=== PATIENT | female | born 1940 | race Caucasian/White ===

== ENCOUNTER 2018-05-10 15:57 | Emergency (ER) | payer OTHER ==
[2018-05-10 16:29] VITALS: BP 119/79; PULSE 71; TEMP 98.6; BMI 34.1
--- NOTE | 2018-05-10 16:41 | PDOC ---
Attending Attestation - Resident Resident Name: Prateek Sheldon - ED Attending Attestation I have performed the following: I have examined & evaluated the patient, The case was reviewed & discussed with the resident, I agree w/resident's findings & plan - HPI HPI: 05/10/18 18:24 The patient is a 77 year old female, with a significant past medical history of Parkinson's, COPD, Depression, HTN, Hypothyroidism, Bipolar disorder, Gait instability, DM, who presents to the emergency department from [facility] via EMS s/p mechanical fall with, a laceration to the head. As per patient , she was using her walker when she went to turn, and subsequently falling and hitting her head. She also endorses pain to the affected site. The patient is a poor historian. She denies any loss of consciousness or injury to the neck and extremities. She denies recent fevers, chills, headache or dizziness. She denies recent nausea, vomit, diarrhea or constipation. She denies recent dysuria or hematuria. She denies recent chest pain or shortness of breath. Allergies: Bactrim Past surgical history: None reported. Social history: Nonsmoker. Denies EtOH use and recreational drug use. <Santi Love - Last Filed: 05/10/18 18:24> - Physicial Exam PE: 05/10/18 19:07 Agree with resident exam. PAtient is alert and in NAD. + 4 cm laceration to scalp. No cervical spine tenderness. No chest or abdominal tenderness. - Medical Decision Making 05/10/18 19:10 Patient presents to the ED complaining of laceration to the scalp after mechanical trip and fall. Given age, will check Ct head and C spine to rule out intracranial or cervical spinal injury. Will likely discharge home if negative. <Cristal Hernández - Last Filed: 05/10/18 19:11> Attestations - Attestations 05/10/18 18:25 Documentation prepared by Santi Love, acting as territory sales manager medical for Cristal Hernández MD. <Santi Love - Last Filed: 05/10/18 18:24>
--- NOTE | 2018-05-10 17:05 | PDOC ---
History of Present Illness - General Chief Complaint: Injury Stated Complaint: FALL Time Seen by Provider: 05/10/18 16:40 History Source: Patient, Family Exam Limitations: No Limitations - History of Present Illness Initial Comments: 77 y/o F w/PMH of Parkinson's, COPD, Depression, HTN, Hypothyroidism, Bipolar d/ o, Gait instability, DM presents to the ER from [facility]. She states she was walking with her walker and tried turning and fell and hit her head. She doesn' t remember exactly how she fell or landed otherwise. She denies LOC, light- headedness, dizziness, nausea, vomiting, CP, palpitations. She reports falling 1 -2 days ago for a mechanical fall but was monitored at the [facility] at that time. She reports increased frequency at night but otherwise denies change in vision, fevers, chills, abd pain, dysuria, change in bowel movements, blood in stool, blood in urine, increase LE edema. Says there was a change in her anti- psychotics 2 weeks ago but does not know which ones exactly. Has a laceration at the top of her head and was sent in from [facility] for further evaluation of the laceration and fall. PMH:Parkinson's, COPD, Depression, HTN, Hypothyroidism, Bipolar d/o, Gait instability, DM PSHx: Denies Allergies: Bactrim 05/10/18 18:27 Past History - Past Medical History Allergies/Adverse Reactions: Allergies Allergy/AdvReac Type Severity Reaction Status Date / Time sulfamethoxazole Allergy Verified 05/10/18 16:14 [From Bactrim] trimethoprim [From Bactrim] Allergy Verified 05/10/18 16:14 Home Medications: Ambulatory Orders Albuterol 2.5/Ipratropium 0.5 [Duoneb -] 1 amp NEB Q6H 05/10/18 Aspirin 81 mg PO DAILY 05/10/18 Atorvastatin Ca [Lipitor] 10 mg PO HS 05/10/18 Bismuth Subsalicylate [Nikia-Pectate] 262 mg PO DAILY PRN 05/10/18 Budesonide/Formeterol Fumarate [SYMBICORT 160/4.5mcg -] 2 inh PO DAILY 05/10/18 Calcium Carbonate/Vitamin D3 [Calcium 500 + Vit D Caplet] 1 each PO DAILY Carbidopa/Levodopa *Cr* 50/200 [Sinemet *Cr* 50/200 -] 1 combo PO TID 05/10/18 Citalopram Hydrobromide [Citalopram HBr] 30 mg PO DAILY 05/10/18 Clonazepam 0.5 mg PO BID 05/10/18 Divalproex Sodium [Depakote] 250 mg PO HS 05/10/18 Divalproex [Depakote -] 500 mg PO DAILY 05/10/18 Divalproex [Depakote -] 500 mg PO HS 05/10/18 Docusate Sodium [Colace] 200 mg PO DAILY 05/10/18 Furosemide 20 mg PO DAILY 05/10/18 L. Acidophilus/Pectin, [place] [Acidophilus Capsule] 1 each PO BID 05/10/18 Lamotrigine [Lamictal] 50 mg PO AM 05/10/18 Lamotrigine [Lamictal] 75 mg PO HS 05/10/18 Levothyroxine [Synthroid -] 25 mcg PO DAILY 05/10/18 Magnesium Hydrox 2400MG/30Ml [Milk of Magnesia -] 30 ml PO DAILY PRN 05/10/18 Melatonin 6 mg PO HS 05/10/18 Metoprolol Succinate 25 mg PO DAILY 05/10/18 Mirtazapine [Remeron -] 45 mg PO DAILY 05/10/18 Omeprazole Magnesium [Prilosec Otc] 20 mg PO DAILY 05/10/18 Pramipexole Dihydrochloride [Mirapex -] 0.125 mg PO TID 05/10/18 Quetiapine Fumarate [Seroquel -] 50 mg PO BID 05/10/18 metFORMIN HCL [Metformin HCl] 500 mg PO BID 05/10/18 COPD: Yes Diabetes: Yes HTN: Yes Psychiatric Problems: Yes (bipolar, parkinson's) - Suicide/Smoking/Psychosocial Hx Smoking History: Never smoked Have you smoked in the past 12 months: No Information on smoking cessation initiated: No Hx Alcohol Use: No Drug/Substance Use Hx: No Substance Use Type: None Review of Systems - Review of Systems Able to Perform ROS?: Yes Constitutional: No: Chills, Fever HEENTM: No: Blurred Vision Respiratory: No: Cough, Shortness of Breath Cardiac (ROS): No: Chest Pain, Irregular Heart Rate, Palpitations, Syncope ABD/GI: No: Blood Streaked Bowels, Diarrhea, Nausea, Vomiting : Yes: Frequency (at night only). No: Burning, Dysuria Integumentary: Yes: Other (Laceration at top of L head) Neurological: Yes: Unsteady Gait (baseline). No: Headache, Numbness *Physical Exam - Vital Signs Last Vital Signs Temp Pulse Resp BP Pulse Ox 98.6 F 71 16 119/79 94 L 05/10/18 16:22 05/10/18 16:22 05/10/18 16:22 05/10/18 16:22 05/10/18 16:22 - Physical Exam General Appearance: Yes: Appropriately Dressed. No: Apparent Distress HEENT: positive: EOMI, SOFYA, Normal Voice, Other (Laceration at crown/parietal ridge area of head approx 1 cm in length. Tender in this area as well. No tenderness in other parts of head.) Neck: positive: Other (Full ROM at neck). negative: Decreased range of motion Respiratory/Chest: positive: Lungs Clear. negative: Respiratory Distress, Accessory Muscle Use Cardiovascular: positive: Regular Rhythm, Regular Rate, S1, S2, Murmur ( Systolic murmur) Gastrointestinal/Abdominal: positive: Normal Bowel Sounds, Soft. negative: Tender Musculoskeletal: positive: Other (No spinal tenderness to palpation). negative : CVA Tenderness (L) Extremity: positive: Normal Range of Motion, Pedal Edema (1+) Neurologic: positive: campaign associate II-XII NML intact, Alert, Other (Oriented x2 (person and place; said year was 2016)) Procedures - Laceration/Wound Repair Left Head Wound Length: to 2.5 cm Wound Explored: clean Wound's Depth, Shape: superficial Irrigated w/ Saline: Yes Wound Repaired With: John (4 john) ED Treatment Course - LABORATORY CBC & Chemistry Diagram: 05/10/18 17:44 05/10/18 17:44 Medical Decision Making - Medical Decision Making 05/10/18 17:[address], C-Spine CT, EKG, CBC, CMP, UA Pt not on AC 05/10/18 18:45 Labs wnl Laceration cleaned with NS. 4 john placed and bacitracin placed and gauze applied. 05/10/18 20:[address] w/no evidence of acute pathology. Awaiting C-Spine CT 05/10/18 20:[address] C[address] negative for any fractures. Pt to return to [facility]. John to be removed in 7-10 days. Pt notified to return to ER if worsening of current symptoms or developing new concerning symptoms including but not limited to nausea, vomiting, change in vision, persistent headache, worsening gait instability or balance. Pt to f/u with PCP in 1 week. *DC/Admit/Observation/Transfer Diagnosis at time of Disposition: Fall, Laceration of head - Discharge Dispostion Disposition: [facility] Condition at time of disposition: Stable Decision to Admit order: No - Referrals Referrals: ON STAFF,NOT [Primary Care Provider] - - Patient Instructions Printed Discharge Instructions: How to Prevent Falls, DI for Laceration Repair -- John Additional Instructions: Follow up with your primary care doctor within 1 week. Your john for your wound on your head need to be removed in 7-10 days. If you develop worsening of your current symptoms or develop nausea, vomiting, persistent headache, worsening of balance, visual disturbances please come back to the ER. If you have new concerning symptoms please also come back to the ER. - Post Discharge Activity
[2018-05-10 17:53] LABS: EOS % 3.2 % (0-4.5); HEMATOCRIT 33.9 % (32.4-45.2); HEMOGLOBIN 11.7 GM/dL (10.7-15.3); LYMPH % 24.5 % (8-40); MCH 30.8 pg (25.7-33.7); MCHC 34.6 g/dl (32.0-36.0); MEAN CELL VOLUME 89.2 fl (80-96); MEAN PLT VOLUME 7.5 fl (7.5-11.1); MONO % 6.8 % (3.8-10.2); NEUT % 64.5 % (42.8-82.8); PLATELET COUNT 188 K/MM3 (134-434); RDW 14.5 % (11.6-15.6); WHITE BLOOD COUNT 3.6 K/mm3 (4.0-10.0)
[2018-05-10 18:17] LABS: ALK PHOS 69 U/L (45-117); ANION GAP 4 MMOL/L (8-16); BILIRUBIN,TOTAL 0.5 mg/dL (0.2-1); BLOOD UREA NITROGEN 18 mg/dL (7-18); CALCIUM 8.3 mg/dL (8.5-10.1); CHLORIDE 100 mmol/L (98-107); CO2 30 mmol/L (21-32); CREATININE 0.9 mg/dL (0.55-1.3); GLUCOSE,RANDOM 191 mg/dL (74-106); MAGNESIUM 2.3 mg/dL (1.8-2.4); POTASSIUM 4.6 mmol/L (3.5-5.1); SGOT/AST 29 U/L (15-37); SGPT/ALT 17 U/L (13-61); SODIUM 135 mmol/L (136-145)
[2018-05-10 19:52] LABS: URINE APPEARANCE CLEAR; URINE BILIRUBIN NEGATIVE (<2.0 mg/dL); URINE COLOR LTYELLOW; URINE GLUCOSE (UA) NEGATIVE (NEGATIVE); URINE KETONE NEGATIVE (NEGATIVE); URINE LEUK ESTERASE NEGATIVE (NEGATIVE); URINE NITRITE NEGATIVE (NEGATIVE); URINE PROTEIN NEGATIVE (NEGATIVE); URINE UROBILINOGEN NEGATIVE mg/dL (0.2-1.0)
[2018-05-10 20:05] LABS: EPI CELLS RARE /HPF (FEW); URINE BACTERIA RARE /hpf (NONE SEEN)
--- NOTE | 2018-05-11 17:04 | EKG ---
Test Reason : Blood Pressure : / mmHG Vent. Rate : 073 BPM Atrial Rate : 073 BPM P-R Int : 210 ms QRS Dur : 088 ms QT Int : 394 ms P-R-T Axes : 022 -11 105 degrees QTc Int : 434 ms SINUS RHYTHM WITH 1ST DEGREE A-V BLOCK SEPTAL INFARCT , AGE UNDETERMINED ABNORMAL ECG NO PREVIOUS ECGS AVAILABLE BASELINE ARTIFACT CLINICAL CORRELATION IS RECOMMENDED Confirmed by KARISSA LARES, GIOVANNI ([id number]) on 05/11/2018 5:04:23 PM Referred By: Confirmed By:GIOVANNI HANCOCK MD
== END 2018-05-10 22:04 ==
LOC: JER 15:57
PROC: 0HQ0XZZ Repair Scalp Skin, External Approach (ICD-10-PCS; principal; 2018-05-10)
DX: S01.01XA Laceration without foreign body of scalp, initial encounter (principal); W18.39XA Other fall on same level, initial encounter; Y93.89 Activity, other specified; Y92.128 Other place in nursing home as the place of occurrence of the external cause; Y99.8 Other external cause status; R35.0 Frequency of micturition; I10 Essential (primary) hypertension; E11.9 Type 2 diabetes mellitus without complications; J44.9 Chronic obstructive pulmonary disease, unspecified; E03.9 Hypothyroidism, unspecified; F31.9 Bipolar disorder, unspecified; Z79.84 Long term (current) use of oral hypoglycemic drugs; G20 Parkinson's disease; F02.80 Dementia in other diseases classified elsewhere, unspecified severity, without behavioral disturbance, psychotic disturbance, mood disturbance, and anxiety; R26.89 Other abnormalities of gait and mobility; Z99.89 Dependence on other enabling machines and devices
CPT/HCPCS: 12001; 36415; 70450-TC; 72125-TC; 80053; 81003; 81015; 83735; 85025; 87086; 93005; 93010; 99282-25

== ENCOUNTER 2019-06-25 13:06 | Day surgery (SDC) | payer OTHER ==
[2019-06-24 17:10] VITALS: BMI 34.1
[2019-06-25 14:23] VITALS: BP 109/70; PULSE 80; TEMP 98.3
== END 2019-06-25 16:30 | disposition home or self-care (01) ==
LOC: JASU-SURG 13:06
PROVIDERS: ATTEND Urology
DX: Z53.8 Procedure and treatment not carried out for other reasons (principal)
CPT/HCPCS: 82962

== ENCOUNTER 2019-06-27 09:03 | Day surgery (SDC) | payer OTHER ==
[2019-06-27 11:07] VITALS: BMI 34.1
[2019-06-27] MEDS ORDERED: MIDAZOLAM HCL 2 MG/2 ML SINGLE DOSE VIAL ONE (13:58)
[2019-06-27] MEDS ORDERED: PROPOFOL 20 ML ONE (13:59)
[2019-06-27] MEDS ORDERED: ceFAZolin SODIUM 1 GM VIAL IVPB ONE ×2 (14:09)
--- NOTE | 2019-06-27 14:41 | OP ---
Operative Note - Note: Operative Date: 06/27/19 Pre-Operative Diagnosis: Persistent microscopic hematuria Operation: Cystoscopy/bladder biopsy/fulguration of lesion Findings: flat hemmorhagic bladder lesion, left anmol trigone. Post-Operative Diagnosis: Same as Pre-op Surgeon: Sinai Bonilla Anesthesia: General Specimens Removed: bladder tissue and urine Drains & Tubes with Location: 18 fr 10 cc ibrahim
--- NOTE | 2019-06-27 15:12 | CONS ---
DATE OF CONSULTATION: 06/27/2019 HISTORY: Patient is a 78-year-old female with history of mixed incontinence, as well as persistent microscopic hematuria. Patient has been placed on anticholinergic, but continues to have frequency, urgency, and nocturia x4. She does have history of high blood pressure, COPD, coronary artery disease. She is diagnosed with Parkinson disease, hypothyroidism and bipolar personality. ALLERGIES: The patient is allergic to B ACTRIM. MEDICATIONS: Presently she is on , Symbicort, metoprolol, a statin, Lasix, Zantac, Catapres, carbidopa and Synthroid. PHYSICAL EXAMINATION: Abdomen: Physical exam reveals a soft abdomen. No CVA tenderness. Chest: Clear. Heart: Regular. LABORATORY DATA: Post void residual was 60 mL. BUN is 27, creatinine is 1.1. Urinalysis is positive for blood. Cytology is suspicious. IMPRESSION: Persistent microscopic hematuria. PLAN: The plan is cystoscopy, bladder biopsy, fulguration. Oliver [id number]
[2019-06-27 16:50] VITALS: TEMP 98.2
[2019-06-27] MEDS ORDERED: PROMETHAZINE HCL 25 MG/1 ML VIAL IVPUSH PRN (16:50)
[2019-06-27] MEDS ORDERED: oxyCODONE HCL 5 MG TABLET PO PRN (16:50)
[2019-06-27] MEDS ORDERED: ONDANSETRON 4 MG/2 ML VIAL IVPUSH PRN (16:50)
[2019-06-27] MEDS ORDERED: LACTATED RINGERS SOLUTION 1,000 ML IV SCH (17:00)
[2019-06-27 20:02] VITALS: BP 131/70; PULSE 80
--- NOTE | 2019-07-01 17:33 | PATH ---
Surgical Pathology Report Patient Name: JOSEPH LICONA [facility]. Rec. #: [id number] /Age/Gender: 1940 (Age: 78) / F Account: [id number] Location: [facility] Taken: 06/27/2019 Received: 06/30/2019 Reported: 07/01/2019 Physicians: Sinai Bonilla M.D. Specimen(s) Received BLADDER BIOPSY Clinical History Hematuria Final Diagnosis BLADDER, BIOPSY: BENIGN BLADDER MUCOSA WITH MILD CHRONIC INFLAMMATION AND FOCAL LAMINA PROPRIA HEMORRHAGE. Comment: See concurrent cytology ([id number]). Electronically Signed Suze Michael M.D. Gross Description Received in formalin, labeled "bladder biopsy" is a lee, irregular portion of soft tissue measuring 0.3 cm. in greatest dimension. The specimen is submitted in toto in one cassette. /06/30/2019 saudi06/30/2019
--- NOTE | 2019-07-04 09:47 | PATH ---
Cytology Non-Gynecological Report Patient Name: JOSEPH LICONA [facility]. Rec. #: [id number] /Age/Gender: 1940 (Age: 78) / F Account: [id number] Location: [facility] Taken: 06/27/2019 Received: 06/27/2019 Reported: 07/04/2019 Physicians: Sinai Bonilla M.D. Specimen(s) Received URINE VOIDED Clinical History Urine Final Diagnosis URINE FOR CYTOLOGY: SATISFACTORY FOR EVALUATION. NEGATIVE FOR HIGH GRADE UROTHELIAL CARCINOMA. SCATTERED UROTHELIAL CELLS AND RED BLOOD CELLS PRESENT. Comment: See concurrent biopsy ([id number]). Electronically Signed Suze Michael M.D. Gross Description Approximately 60 cc of yellow fluid received fresh. One cytofunnel prepared and Pap stained.
--- NOTE | 2019-07-08 11:50 | OP ---
DATE OF OPERATION: 06/27/2019 INDICATIONS: Patient is a 78-year-old female with a history of persistent microscopic hematoma. PREOPERATIVE DIAGNOSIS: Persistent microscopic hematoma. OPERATIVE PROCEDURE: Cystourethroscopy, bladder biopsy, fulguration of bladder points. ANESTHESIA: General. DESCRIPTION OF PROCEDURE: Under above-stated anesthesia, patient was prepped and draped in the usual sterile manner. She is placed in the dorsal lithotomy position. Cystoscopy introduced under direct vision revealed a normal bladder neck. Bladder was entered. Urine was collected for culture, sensitivity, and cytology. Inspection of the bladder revealed several hyperemic, flat areas in the left hemitrigone. No other lesions were seen. Ureteral orifices were within normal limits with efflux of clear urine. Biopsies of the left hemitrigone were taken. The base was cauterized for hemostasis. No other lesions were seen. The bladder was emptied. The scope was removed. An 18-Urdu Byrne was inserted. This was connected to a leg bag. The patient tolerated the procedure well. She returned to the recovery room in good condition. Oliver [id number]
== END 2019-06-27 18:15 | disposition home or self-care (01) ==
LOC: JASU-SURG 09:03
PROVIDERS: ATTEND Urology
PROC: 0TBB8ZX Excision of Bladder, Via Natural or Artificial Opening Endoscopic, Diagnostic (ICD-10-PCS; principal; 2019-06-27 12:00)
DX: R31.21 Asymptomatic microscopic hematuria (principal); I10 Essential (primary) hypertension; J44.9 Chronic obstructive pulmonary disease, unspecified; E11.9 Type 2 diabetes mellitus without complications; Z79.84 Long term (current) use of oral hypoglycemic drugs; G20 Parkinson's disease
CPT/HCPCS: 82962; 87086; 88108; 88305-TC; 94760